=== PATIENT | female | born 1955 ===

== ENCOUNTER 2017-03-10 08:49 | Day surgery (SDC) | payer MEDICARE ==
[2017-03-03 14:02] VITALS: BMI 26.6
[2017-03-10] MEDS ORDERED: Propofol 10 mg/ml Inj (20 ML) ONE (10:56)
[2017-03-10] MEDS ORDERED: ePHEDrine 50 mg/ml Inj ONE (10:56)
[2017-03-10] MEDS ORDERED: Sodium Chloride 0.9% 1,000 ML IV SCH (11:45)
[2017-03-10 15:05] VITALS: BP 124/78; PULSE 60; RESP 16; TEMP 97.7; O2SAT 100
== END 2017-03-10 13:00 | disposition home or self-care (01) ==
LOC: ENDO 08:49
PROVIDERS: ATTEND Internal Medicine
DX: K29.50 Unspecified chronic gastritis without bleeding (principal); B96.81 Helicobacter pylori [H. pylori] as the cause of diseases classified elsewhere; R10.13 Epigastric pain; K31.89 Other diseases of stomach and duodenum
CPT/HCPCS: 43239; 88305; 88342; J2704; J7040

== ENCOUNTER 2017-05-06 17:53 | Emergency (ER) | payer MEDICARE, OTHER ==
[2017-05-06 17:54] VITALS: BMI 26.6
[2017-05-06 18:10] VITALS: RESP 18; O2SAT 99
--- NOTE | 2017-05-06 18:36 | ED PDOC ---
Arrival/HPI - General Chief Complaint: Fever Time Seen by Provider: 05/06/17 18:32 Historian: Patient - History of Present Illness Narrative History of Present Illness (Text): 05/06/17 18:33 This 61 yo female with pmh hypothyroidism, presents to this ED c/o influenza like symptoms since this morning. Patient stated she has been feeling chills, sore throat, cough, myalgias, and fever. Patient stated her boyfriend has similar symptoms. Denies recent travel, hemoptysis, weakness, paresthesias, cp , skin rash, dizziness, abdominal pain, or urinary symptoms. Time/Duration: Other (see hpi) Symptom Onset: Sudden Context: Home Past Medical History - Provider Review Nursing Documentation Reviewed: Yes - Infectious Disease Hx of Infectious Diseases: None - Tetanus Immunization Tetanus Immunization: Unknown - Cardiac Hx Pacemaker: No - Pulmonary Hx Respiratory Disorders: No Hx Asthma: No - Neurological Hx Paralysis: No - HEENT Hx HEENT Disorder: No - Renal Hx Renal Disorder: No - Endocrine/Metabolic Hx Endocrine Disorders: Yes Hx Hypothyroidism: Yes - Hematological/Oncological Hx Blood Transfusions: No Hx Blood Transfusion Reaction: No - Integumentary Hx Dermatological Disorder: No Hx Basal Cell Carcinoma: No - Musculoskeletal/Rheumatological Hx Musculoskeletal Disorders: Yes - Gastrointestinal Hx Gastrointestinal Disorders: No - Genitourinary/Gynecological Hx Genitourinary Disorders: No - Psychiatric Hx Emotional Abuse: No Hx Physical Abuse: No Hx Substance Use: No - Surgical History Hx Section: Yes (x 3) - Anesthesia Hx Anesthesia Reactions: No Hx Malignant Hyperthermia: No - Suicidal Assessment Feels Threatened In Home Enviroment: No Family/Social History - Physician Review Nursing Documentation Reviewed: Yes Family/Social History: Other (noncontributory) Smoking Status: Current Some Days Smoker Hx Alcohol Use: Yes (SOCIALLY) Hx Substance Use: No Hx Substance Use Treatment: No Allergies/Home Meds Allergies/Adverse Reactions: Allergies codeine Allergy (Severe, Verified 03/03/17 14:01) RASH Home Medications: Home Meds Medication Instructions Recorded Confirmed Levothyroxine [Synthroid] 0.1 mg PO DAILY 04/09/16 05/06/17 Omeprazole 40 mg PO DAILY 04/21/16 05/06/17 Simvastatin [Zocor] 20 mg PO DAILY 03/03/17 05/06/17 Zolpidem [Ambien] 10 mg PO HS 03/03/17 05/06/17 Review of Systems - Review of Systems Constitutional: Normal. absent: Fatigue, Weight Change, Fevers Eyes: Normal ENT: Sore Throat Respiratory: Cough. absent: SOB, Sputum, Wheezing Cardiovascular: Normal. absent: Chest Pain, Palpitations Gastrointestinal: Normal. absent: Abdominal Pain, Nausea, Vomiting Genitourinary Female: Normal. absent: Dysuria, Frequency, Hematuria Musculoskeletal: Myalgias Skin: Normal. absent: Rash Neurological: Normal. absent: Headache, Dizziness, Focal Weakness, Gait Changes , Speech Changes, Facial Droop Endocrine: Normal Hemo/Lymphatic: Normal Psychiatric: Normal Physical Exam Vital Signs Temp Pulse Resp BP Pulse Ox 05/06/17 18:10 100.7 F H 110 H 18 138/70 99 Temperature: Febrile Blood Pressure: Normal Pulse: Tachycardic Respiratory Rate: Normal Appearance: Positive for: Well-Appearing, Non-Toxic, Comfortable Pain Distress: None Mental Status: Positive for: Alert and Oriented X 3 - Systems Exam Head: Present: Atraumatic, Normocephalic Pupils: Present: PERRL Extroacular Muscles: Present: EOMI Conjunctiva: Present: Normal Mouth: Present: Moist Mucous Membranes Pharnyx: Present: Normal. No: ERYTHEMA, EXUDATE, TONSILS ENLARGED Neck: Present: Normal Range of Motion, Trachea Midline. No: Meningeal Signs Respiratory/Chest: Present: Clear to Auscultation, Good Air Exchange. No: Respiratory Distress, Accessory Muscle Use Cardiovascular: Present: Regular Rate and Rhythm, Normal S1, S2. No: Murmurs Abdomen: Present: Normal Bowel Sounds. No: Tenderness, Distention, Peritoneal Signs Back: Present: Normal Inspection. No: CVA Tenderness Upper Extremity: Present: Normal Inspection, Normal ROM. No: Cyanosis, Edema Lower Extremity: Present: Normal Inspection, Normal ROM. No: Edema Neurological: Present: GCS=15, CN II-XII Intact, Speech Normal, Motor Func Grossly Intact, Normal Sensory Function, Normal Cerebellar Funct, Gait Normal Skin: Present: Warm, Dry, Normal Color. No: Rashes Psychiatric: Present: Alert, Oriented x 3, Normal Insight, Normal Concentration Medical Decision Making ED Course and Treatment: 05/06/17 19:28 Re-evaluation. Patient feels better. Discussed results and plan with patient who expresses understanding. All questions answered and there is agreement with the plan to discharge home with instructions. Patient stable for discharge. Return if symptoms persist or worsen. Re-evaluation Time: 19:28 Reassessment Condition: Re-examined, Improved - Lab Interpretations Lab Results: Lab Results 05/06/17 18:50: Influenza Typ A,B (EIA) Pos for influenza a H I have reviewed the lab results: Yes Interpretation: Abnormal lab values - Medication Orders Current Medication Orders: Discontinued Medications Acetaminophen (Tylenol 325mg Tab) 975 mg PO STAT STA Stop: 05/06/17 18:37 Last Admin: 05/06/17 19:12 Dose: 975 mg MAR Pain/Vitals Document 05/06/17 19:12 RD (Rec: 05/06/17 19:12 RD [facility] [id number]) Pain Reassessment Is This A Pain ReAssessment? No Sleep Is patient sleeping during reassessment? No Presence of Pain Presence of Pain Yes Disposition/Present on Arrival - Present on Arrival Any Indicators Present on Arrival: No History of DVT/PE: No History of Uncontrolled Diabetes: No Urinary Catheter: No History of Decub. Ulcer: No History Surgical Site Infection Following: None - Disposition Have Diagnosis and Disposition been Completed?: Yes Diagnosis: Influenza A Disposition: HOME/ ROUTINE Disposition Time: 19:29 Patient Plan: Discharge Condition: GOOD Discharge Instructions (ExitCare): Influenza (ED) Additional Instructions: Call private doctor for follow up visit in 1-2 days. Take medication as instructed. return to emergency if symptoms worsen. Drink plenty of fluids. Prescriptions: Azithromycin [Z-Tha] 250 mg PO DAILY #6 tab Ibuprofen [Motrin] 600 mg PO Q8 PRN #20 tab PRN Reason: Fever >100.4 F Oseltamivir [Tamiflu] 75 mg PO BID #9 cap Promethazine [Phenergan Syrup] 5 ml PO Q4H PRN #120 ml PRN Reason: Cough Referrals: [facility] De Guzman, [Primary Care Provider] - Follow up with primary Vanesa Myles MD [Staff Provider] - Follow up with primary Forms: [employer] ([place]ian), WORK NOTE
[2017-05-06 23:13] VITALS: BP 135/72; PULSE 88; TEMP 98.6
== END 2017-05-06 19:46 | disposition home or self-care (01) ==
LOC: ED 17:53
DX: J09.X2 Influenza due to identified novel influenza A virus with other respiratory manifestations (principal); F17.210 Nicotine dependence, cigarettes, uncomplicated

== ENCOUNTER 2017-05-08 11:06 | Emergency (ER) | payer MEDICARE, OTHER ==
[2017-05-08 11:06] VITALS: BMI 26.6
[2017-05-08 11:20] VITALS: TEMP 97.8
[2017-05-08] MEDS ORDERED: Sodium Chloride 0.9% 1,000 ML IV STA (11:29)
--- NOTE | 2017-05-08 11:34 | ED PDOC ---
Arrival/HPI - General Chief Complaint: GI Problem Time Seen by Provider: 05/08/17 11:07 Historian: Patient - History of Present Illness Narrative History of Present Illness (Text): 05/08/17 11:31 61yo female with PMHx of hypothyroid present with complaint of multiple episode of nonbloody/nonbilious vomiting and diarrhea since this morning. also report headache. She was is currently of Zpack and Tamiflu for positive flu since the of this month. She denies abdominal pain, fever, chills, urinary symptoms, chest pain, SOB, sick contact, travel, any other complaint. Past Medical History - Provider Review Nursing Documentation Reviewed: Yes - Infectious Disease Hx of Infectious Diseases: None - Tetanus Immunization Tetanus Immunization: Unknown - Cardiac Hx Cardiac Disorders: No Hx Pacemaker: No - Pulmonary Hx Respiratory Disorders: No Hx Asthma: No - Neurological Hx Paralysis: No - HEENT Hx HEENT Disorder: No - Renal Hx Renal Disorder: No - Endocrine/Metabolic Hx Endocrine Disorders: Yes Hx Hypothyroidism: Yes - Hematological/Oncological Hx Blood Transfusions: No Hx Blood Transfusion Reaction: No - Integumentary Hx Dermatological Disorder: No Hx Basal Cell Carcinoma: No - Musculoskeletal/Rheumatological Hx Musculoskeletal Disorders: Yes - Gastrointestinal Hx Gastrointestinal Disorders: Yes Hx Gastroesophageal Reflux: Yes - Genitourinary/Gynecological Hx Genitourinary Disorders: No - Psychiatric Hx Emotional Abuse: No Hx Physical Abuse: No Hx Substance Use: No - Surgical History Hx Section: Yes (x 3) - Anesthesia Hx Anesthesia: Yes Hx Anesthesia Reactions: No Hx Malignant Hyperthermia: No - Suicidal Assessment Feels Threatened In Home Enviroment: No Family/Social History - Physician Review Nursing Documentation Reviewed: Yes Family/Social History: Unknown Family HX Smoking Status: Current Some Days Smoker Hx Alcohol Use: Yes (SOCIALLY) Hx Substance Use: No Hx Substance Use Treatment: No Allergies/Home Meds Allergies/Adverse Reactions: Allergies codeine Allergy (Severe, Verified 05/08/17 11:15) RASH Home Medications: Home Meds Medication Instructions Recorded Confirmed Levothyroxine [Synthroid] 0.1 mg PO DAILY 04/09/16 05/08/17 Omeprazole 40 mg PO DAILY 04/21/16 05/08/17 Simvastatin [Zocor] 20 mg PO DAILY 03/03/17 05/08/17 Zolpidem [Ambien] 10 mg PO HS 03/03/17 05/08/17 Review of Systems - Physician Review All systems were reviewed & negative as marked: Yes - Review of Systems Constitutional: Normal Eyes: Normal ENT: Normal Respiratory: Normal Cardiovascular: Normal Gastrointestinal: Diarrhea, Nausea, Vomiting. absent: Abdominal Pain, Constipation, Hematochezia, Hematemesis Genitourinary Female: Normal Musculoskeletal: Normal Skin: Normal Neurological: Normal Endocrine: Normal Hemo/Lymphatic: Normal Psychiatric: Normal Physical Exam Vital Signs Reviewed: Yes Vital Signs Temp Pulse Resp BP Pulse Ox 05/08/17 13:19 68 20 122/67 99 05/08/17 11:19 97.8 F 76 14 136/83 98 Temperature: Afebrile Blood Pressure: Normal Pulse: Regular Respiratory Rate: Normal Appearance: Positive for: Well-Appearing, Non-Toxic, Comfortable Pain Distress: None Mental Status: Positive for: Alert and Oriented X 3 - Systems Exam Head: Present: Atraumatic, Normocephalic Pupils: Present: PERRL Extroacular Muscles: Present: EOMI Conjunctiva: Present: Normal Mouth: Present: Moist Mucous Membranes Neck: Present: Normal Range of Motion Respiratory/Chest: Present: Clear to Auscultation, Good Air Exchange. No: Respiratory Distress, Accessory Muscle Use Cardiovascular: Present: Regular Rate and Rhythm, Normal S1, S2. No: Murmurs Abdomen: Present: Normal Bowel Sounds, Other (Soft). No: Tenderness, Distention , Peritoneal Signs, Rebound, Guarding, McBurney's Point Tender, Rovsing's Sign Present Back: Present: Normal Inspection Upper Extremity: Present: Normal Inspection. No: Cyanosis, Edema Lower Extremity: Present: Normal Inspection. No: Edema Neurological: Present: GCS=15, CN II-XII Intact, Speech Normal, Motor Func Grossly Intact, Normal Sensory Function, Normal Cerebellar Funct, Memory Normal , Other (No focal neurological deficit) Skin: Present: Warm, Dry, Normal Color. No: Rashes Psychiatric: Present: Alert, Oriented x 3, Normal Insight, Normal Concentration Medical Decision Making ED Course and Treatment: 05/08/17 14:27 Pt in Ed for stated history. On re evaluation s/p medication and hydration pt states she feels much better. She was noted to tolerate PO challenge in ED. Lab was unremarkable. Result was DW the pt. Her symptoms is likely viral enteritis. Will DC home and refer to her PMD. TRT ED for any new or worsening symptoms. - Lab Interpretations Lab Results: 05/08/17 11:40 05/08/17 11:40 Lab Results 05/08/17 12:: Lactic Acid 1.4 05/08/17 12:15: Urine Color Yellow, Urine Appearance Clear, Urine pH 5.5, Ur Specific [place] >= 1.030, Urine Protein 100 H, Urine Glucose (UA) Negative, Urine Ketones Negative, Urine Blood Large H, Urine Nitrate Negative, Urine Bilirubin Negative, Urine Urobilinogen 0.2, Ur Leukocyte Esterase Negative, Urine RBC 25 - 30, Urine WBC 1 - 3, Ur Epithelial Cells 6 - 8, Amorphous Sediment Few, Urine Bacteria Many, Coarse Granular Casts Trace H, Urine Other Uyeast 05/08/17 11:40: Sodium 139, Potassium 3.9, Chloride 104, Carbon Dioxide 28, Anion Gap 11, BUN 21, Creatinine 0.6 L, Est GFR ( Amer) > 60, Est GFR ( Non-Af Amer) > 60, Random Glucose 122 H, Calcium 8.6, Total Bilirubin 0.5, AST 41 H D, ALT 34, Alkaline Phosphatase 90, Lactate Dehydrogenase 526, Total Creatine Kinase 140, Troponin I < 0.01, Total Protein 8.0, Albumin 4.0, Globulin 4.0, Albumin/Globulin Ratio 1.0 L, Amylase 92, Lipase 160 05/08/17 11:40: PT 12.2, INR 1.11 H, APTT 27.9 05/08/17 11:40: WBC 7.8, RBC 4.74, Hgb 13.0, Hct 40.7, MCV 85.9, MCH 27.4, MCHC 31.9, RDW 14.3, Plt Count 187, MPV 11.0, Gran % 59.3, Lymph % (Auto) 31.4, [place] % (Auto) 8.8 H, Eos % (Auto) 0.4 L, Baso % (Auto) 0.1, Gran # 4.63, Lymph # 2.5 , [place] # 0.7 H, Eos # 0.0, Baso # 0.01 - Medication Orders Current Medication Orders: Sodium Chloride (Sodium Chloride 0.9%) 1,000 mls @ 100 mls/hr IV .Q10H STA Stop: 05/08/17 21:28 Last Admin: 05/08/17 11:59 Dose: 100 mls/hr eMAR Start Stop Document 05/08/17 11:59 CNR (Rec: 05/08/17 12:00 CNR [id number]) Intravenous Solution Start Date 05/08/17 Start Time 12:00 Discontinued Medications Famotidine (Pepcid) 20 mg IVP STAT STA Stop: 05/08/17 11:30 Last Admin: 05/08/17 12:00 Dose: 20 mg IVP Administration Document 05/08/17 12:00 CNR (Rec: 05/08/17 12:00 CNR [id number]) Charges for Administration # of IVP Administrations 1 Ketorolac Tromethamine (Toradol) 30 mg IVP STAT STA Stop: 05/08/17 11:30 Last Admin: 05/08/17 12:00 Dose: 30 mg MAR Pain Assessment Document 05/08/17 12:00 CNR (Rec: 05/08/17 12:00 CNR [id number]) Pain Reassessment Is this a pain reassessment? Yes IVP Administration Document 05/08/17 12:00 CNR (Rec: 05/08/17 12:00 CNR [id number]) Charges for Administration # of IVP Administrations 1 Meclizine HCl (Antivert) 25 mg PO STAT STA Stop: 05/08/17 13:33 Last Admin: 05/08/17 13:48 Dose: 25 mg Ondansetron HCl (Zofran Inj) 4 mg IVP STAT STA Stop: 05/08/17 11:30 Last Admin: 05/08/17 12:00 Dose: 4 mg IVP Administration Document 05/08/17 12:00 CNR (Rec: 05/08/17 12:00 CNR [id number]) Charges for Administration # of IVP Administrations 1 Disposition/Present on Arrival - Present on Arrival Any Indicators Present on Arrival: No History of DVT/PE: No History of Uncontrolled Diabetes: No Urinary Catheter: No History of Decub. Ulcer: No History Surgical Site Infection Following: None - Disposition Have Diagnosis and Disposition been Completed?: Yes Diagnosis: Vomiting and diarrhea, Dizziness, Headache Disposition: HOME/ ROUTINE Disposition Time: 14:30 Patient Plan: Discharge Condition: STABLE Discharge Instructions (ExitCare): Acute Nausea and Vomiting (ED) Additional Instructions: Follow BLAND diet Follow up with your doctor Return to ED for any new or worsening symptoms Prescriptions: Ondansetron ODT [Zofran ODT] 4 mg PO Q6 #8 odt Referrals: PCP,NO [Primary Care Provider] - Follow up with primary [facility] [place] [Outside] - Follow up with primary Forms: [employer] (K[place]akh)
[2017-05-08 12:00] LABS: BASO # 0.01 K/mm3 (0.0-2.0); BASO % 0.1 % (0.0-3.0); EOS % 0.4 % (1.5-5.0); GRAN # 4.63 (1.4-6.5); GRAN % 59.3 % (50.0-68.0); LYMPH # 2.5 (1.2-3.4); LYMPH % 31.4 % (22.0-35.0); MEAN CELL VOLUME 85.9 fl (80.0-105.0); MEAN CORPUSCULAR HEMOGLOBIN 27.4 pg (25.0-35.0); MEAN CORPUSCULAR HGB CONC 31.9 g/dl (31.0-37.0); MONO # 0.7 (0.1-0.6); MONO % 8.8 % (1.0-6.0); RBC 4.74 10^6/uL (3.5-6.1); RED CELL DISTRIBUTION WIDTH 14.3 % (11.5-14.5); WHITE BLOOD COUNT 7.8 10^3/ul (4.5-11.0)
[2017-05-08 12:10] LABS: ALT/SGPT 34 U/L (7-56); AMYLASE 92 U/L (35-125); AST/SGOT 41 U/L (14-36); BLOOD UREA NITROGEN 21 mg/dL (7-21); CALCIUM 8.6 mg/dL (8.4-10.5); GFR AFRICAN-AMERICAN > 60; GFR NON-AFRICAN AMERICAN > 60; LIPASE 160 U/L (23-300)
[2017-05-08 12:14] LABS: INR 1.11 (0.93-1.08); PARTIAL THROMBOPLASTIN TIME 27.9 Seconds (25.1-36.5); PROTHROMBIN TIME 12.2 SECONDS (9.4-12.5)
[2017-05-08 12:21] LABS: TROPONIN I < 0.01 ng/mL
[2017-05-08 12:27] LABS: PH,URINE 5.5 (4.7-8.0); URINE BILIRUBIN NEGATIVE (NEGATIVE); URINE BLOOD LARGE (NEGATIVE); URINE GLUCOSE (UA) NEGATIVE (NEGATIVE); URINE LEUKOCYTE ESTERASE NEGATIVE Leu/uL (NEGATIVE); URINE NITRATE NEGATIVE (NEGATIVE); URINE PROTEIN 100 mg/dL (<30 mg/dL); URINE UROBILINOGEN 0.2 E.U./dL (<1 E.U./dL)
[2017-05-08 12:28] LABS: URINE APPEARANCE CLEAR (CLEAR); URINE COLOR YELLOW (YELLOW)
[2017-05-08 12:45] LABS: URINE BACTERIA MANY (NEG); URINE RBC 25 - 30 /hpf (0-2)
[2017-05-08 12:46] LABS: URINE AMORPHOUS SEDIMENT FEW; URINE COARSE GRANULAR CAST TRACE /hpf (0-2)
[2017-05-08 13:22] VITALS: BP 122/67; PULSE 68; RESP 20; O2SAT 99
--- NOTE | 2017-05-08 18:18 | CARD ---
APPROVED REPORT EKG Measurement Heart [id number] <Conclusion> Normal sinus rhythm Moderate voltage criteria for LVH, may be normal variant Borderline ECG
== END 2017-05-08 14:39 | disposition home or self-care (01) ==
LOC: ED 11:06
DX: R11.10 Vomiting, unspecified (principal); R19.7 Diarrhea, unspecified; R42 Dizziness and giddiness; R51 Headache
CPT/HCPCS: 80053; 81001; 82150; 82550; 83605; 83615; 83690; 84484; 85025; 85610; 85730; 93005; 96374; 96375; 99284; J1885; J2405; J7040